=== PATIENT | male | born 1965 | race Caucasian/White ===

== ENCOUNTER → 2020-09-01 | Outpatient (CLI) | payer OTHER ==
[~2020-09-01] MED LIST: NAPR220 PO; OMEPRAZOLE MAGN20 MG PO
== END ==
LOC: LAB 07:00 → LAB SHORT 07:00 → LAB FUT 08-25 14:10
PROVIDERS: Internal Medicine Nephrology
DX: N18.32 Chronic kidney disease, stage 3b (principal); D63.1 Anemia in chronic kidney disease; N25.81 Secondary hyperparathyroidism of renal origin; E55.9 Vitamin D deficiency, unspecified; E78.00 Pure hypercholesterolemia, unspecified; R76.9 Abnormal immunological finding in serum, unspecified; R94.5 Abnormal results of liver function studies; R94.6 Abnormal results of thyroid function studies; G60.9 Hereditary and idiopathic neuropathy, unspecified
CPT/HCPCS: 81050; 82530

== ENCOUNTER 2020-12-15 08:51 | Emergency (ER) | payer OTHER ==
[~2020-12-15] VITALS: Ht 182.9 cm; Wt 81.7 kg
[2020-12-15] MEDS ORDERED: Norco 5-325 Ta1 EACH PO (10:22)
== END 2020-12-15 11:46 | disposition home or self-care (01) ==
LOC: ER 08:51
DX: S82.61XA Displaced fracture of lateral malleolus of right fibula, initial encounter for closed fracture (principal); I10 Essential (primary) hypertension; F17.200 Nicotine dependence, unspecified, uncomplicated; Z79.899 Other long term (current) drug therapy; W01.0XXA Fall on same level from slipping, tripping and stumbling without subsequent striking against object, initial encounter
CPT/HCPCS: 29515; 73610; 99283-25; A9270

== ENCOUNTER 2022-10-06 09:53 | Emergency (ER) | payer OTHER ==
[~2022-10-06] VITALS: Ht 182.9 cm; Wt 95.2 kg
[~2022-10-06 09:53] MED LIST changes: +Norco 5-325 Ta1 EACH PO
[2022-10-06 10:17] LABS: Hematocrit 41.5 % (37.0-53.0); Hemoglobin 14.4 g/dL (13.5-17.5); Mean Corpuscular HGB 31.5 pg (26.0-34.0); Mean Corpuscular HGB Conc 34.7 g/dL (31.5-36.5); Mean Corpuscular Volume 91 fL (80-100); Mean Platelet Volume 8.6 fL (9.1-12.4); Platelet Count 244 K/mm3 (150-400); RDW Coefficient Variation 13.9 % (11.7-14.2); RDW Standard Deviation 46.4 fL (35.1-46.3); Red Blood Cell Count 4.57 M/mm3 (4.30-5.90); White Blood Cell Count 8.26 K/mm3 (4.00-11.30)
[2022-10-06 10:40] LABS: Albumin/Globulin Ratio 0.9 (0.8-1.8); Bilirubin, Total 0.5 mg/dL (0.1-1.0); Bun/Creatinine Ratio 7.9 (12.0-20.0); Calcium, Blood 9.1 mg/dL (8.5-10.1); Creatinine, Blood 0.76 mg/dL (0.60-1.20); Globulin, Blood 4.3 g/dL (2.2-4.0); Potassium, Blood 3.6 mmol/L (3.5-5.5); Total Protein, Blood 8.3 g/dL (6.4-8.2)
[2022-10-06 11:25] LABS: BASOPHILS ABSOLUTE MAN 0.16 K/mm3 (0.00-0.23); BASOPHILS PERCENT MAN 2 % (0-2); EOSINOPHILS ABSOLUTE MAN 0.24 K/mm3 (0.00-0.68); EOSINOPHILS PERCENT MAN 3 % (0-6); LYMPHOCYTES ABSOLUTE MAN 2.23 K/mm3 (0.84-5.20); LYMPHOCYTES PERCENT MAN 27 % (21-46); MONOCYTES ABSOLUTE MAN 0.57 K/mm3 (0.16-1.47); MONOCYTES PERCENT MAN 7 % (4-13); NEUTROPHILS ABSOLUTE MAN 5.03 K/mm3 (1.96-9.15); SEG NEUTROPHILS PERCENT MAN 61 % (41-73); TOTAL CELLS COUNTED 100
== END 2022-10-06 13:07 | disposition home or self-care (01) ==
LOC: ER 09:53
PROVIDERS: Physician Assistant
DX: I10 Essential (primary) hypertension (principal); R07.9 Chest pain, unspecified; Z53.21 Procedure and treatment not carried out due to patient leaving prior to being seen by health care provider
CPT/HCPCS: 36415; 71046; 80053; 84484; 85025; 93005; 93010

== ENCOUNTER → 2023-02-22 | Outpatient (CLI) | payer OTHER ==
[2023-02-22 12:09] LABS: BASOPHILS ABSOLUTE AUTO 0.06 K/mm3 (0.00-0.23); BASOPHILS PERCENT AUTO 1 % (0-2); EOSINOPHILS ABSOLUTE AUTO 0.16 K/mm3 (0.00-0.68); EOSINOPHILS PERCENT AUTO 3 % (0-6); Hematocrit 41.1 % (37.0-53.0); Hemoglobin 14.3 g/dL (13.5-17.5); IMMATURE GRAN ABSOLUTE AUTO 0.05 K/mm3 (0.00-0.10); IMMATURE GRAN PERCENT AUTO 1 % (0-1); LYMPHOCYTES ABSOLUTE AUTO 1.67 K/mm3 (0.84-5.20); LYMPHOCYTES PERCENT AUTO 29 % (21-46); MONOCYTES ABSOLUTE AUTO 0.61 K/mm3 (0.16-1.47); MONOCYTES PERCENT AUTO 11 % (4-13); Mean Corpuscular HGB 32.9 pg (26.0-34.0); Mean Corpuscular HGB Conc 34.8 g/dL (31.5-36.5); Mean Corpuscular Volume 95 fL (80-100); Mean Platelet Volume 9.3 fL (9.1-12.4); NEUTROPHILS ABSOLUTE AUTO 3.19 K/mm3 (1.96-9.15); NEUTROPHILS PERCENT AUTO 56 % (41-73); Platelet Count 177 K/mm3 (150-400); RDW Coefficient Variation 13.9 % (11.7-14.2); RDW Standard Deviation 48.1 fL (35.1-46.3); Red Blood Cell Count 4.34 M/mm3 (4.30-5.90); White Blood Cell Count 5.74 K/mm3 (4.00-11.30)
[2023-02-22 12:51] LABS: Alanine Aminotransfer (ALT/SGP 91 U/L (12-78); Albumin, Blood 3.6 g/dL (3.4-5.0); Albumin/Globulin Ratio 0.9 (0.8-1.8); Alk Phos 109 U/L (50-136); Anion Gap 6 mmol/L (6-16); Aspartate Aminotrans (AST/SGOT 86 U/L (12-37); Bilirubin, Total 0.7 mg/dL (0.1-1.0); Blood Urea Nitrogen 4 mg/dL (8-24); Bun/Creatinine Ratio 6.3 (12.0-20.0); CHOL/HDL RATIO 2.1; CO2, Blood 27 mmol/L (21-32); Calcium, Blood 8.3 mg/dL (8.5-10.1); Chloride, Blood 108 mmol/L (98-108); Cholesterol 121 mg/dL (50-200); Creatinine, Blood 0.63 mg/dL (0.60-1.20); Glomerular Filtration Rate 112 (60-); Glucose, Blood 120 mg/dL (70-99); HDL Cholesterol 58 mg/dL (>39); LDL/HDL RATIO 0.8; Low Density Lipoprotein Chol 47 mg/dL (0-110); Potassium, Blood 3.3 mmol/L (3.5-5.5); Sodium, Blood 141 mmol/L (136-145); Total Protein, Blood 7.6 g/dL (6.4-8.2); Triglycerides 81 mg/dL (30-160); Very Low Density Lipoprot Chol 16 mg/dL (6-32)
== END | disposition home or self-care (01) ==
LOC: LAB SHORT 08:41
PROVIDERS: Family Medicine
DX: B18.2 Chronic viral hepatitis C (principal); I10 Essential (primary) hypertension
CPT/HCPCS: 80053; 80061; 85025

== ENCOUNTER 2023-12-06 10:55 | Emergency (ER) | payer OTHER ==
[~2023-12-06] VITALS: Ht 182.9 cm; Wt 87.5 kg
[~2023-12-06 10:55] MED LIST changes: +CATAPRES0.2 M1 PO; +METF500 PO; +OMEP20ER PO; +Ventolin/Prove6.7 GM INH; +ZESTRIL40 MG PO
[2023-12-06] MEDS ORDERED: Metoprolol Tartrate 1 MG/ML 5 ML VIAL IV ONE (11:20)
[2023-12-06] MEDS ORDERED: FentaNYL Citrate 50 MCG/ML 2 ML Injection IV ONE (11:20)
[2023-12-06] MEDS ORDERED: NS 1,000 ML IV SCH ×2 (11:20→14:10)
[2023-12-06] MEDS ORDERED: Ondansetron HCl 2 MG / ML 2ML Vial IV ONE (11:20)
[2023-12-06 11:24] LABS: BASOPHILS ABSOLUTE AUTO 0.08 K/mm3 (0.00-0.23); BASOPHILS PERCENT AUTO 1 % (0-2); EOSINOPHILS ABSOLUTE AUTO 0.01 K/mm3 (0.00-0.68); EOSINOPHILS PERCENT AUTO 0 % (0-6); Hematocrit 48.9 % (37.0-53.0); Hemoglobin 16.4 g/dL (13.5-17.5); IMMATURE GRAN ABSOLUTE AUTO 0.15 K/mm3 (0.00-0.10); IMMATURE GRAN PERCENT AUTO 1 % (0-1); LYMPHOCYTES ABSOLUTE AUTO 0.61 K/mm3 (0.84-5.20); LYMPHOCYTES PERCENT AUTO 4 % (21-46); MONOCYTES PERCENT AUTO 5 % (4-13); Mean Corpuscular HGB 32.6 pg (26.0-34.0); Mean Corpuscular HGB Conc 33.5 g/dL (31.5-36.5); Mean Corpuscular Volume 97 fL (80-100); NEUTROPHILS ABSOLUTE AUTO 14.87 K/mm3 (1.96-9.15); NEUTROPHILS PERCENT AUTO 89 % (41-73); Platelet Count 386 K/mm3 (150-400); RDW Coefficient Variation 13.7 % (11.7-14.2); RDW Standard Deviation 48.9 fL (35.1-46.3); Red Blood Cell Count 5.03 M/mm3 (4.30-5.90); White Blood Cell Count 16.62 K/mm3 (4.00-11.30)
[2023-12-06 11:36] LABS: Albumin, Blood 4.7 g/dL (3.4-5.0); Albumin/Globulin Ratio 0.9 (0.8-1.8); Bilirubin, Total 1.7 mg/dL (0.1-1.0); Bun/Creatinine Ratio 16.5 (12.0-20.0); Calcium, Blood 9.8 mg/dL (8.5-10.1); Creatinine, Blood 0.79 mg/dL (0.60-1.20); Potassium, Blood 4.2 mmol/L (3.5-5.5); Total Protein, Blood 9.7 g/dL (6.4-8.2)
[2023-12-06] MEDS ORDERED: CloNIDine 0.1 MG Tab SL ONE (12:25)
[2023-12-06] MEDS ORDERED: LORazepam 2 MG/ML 1ML Injection IV ONE (14:10)
[2023-12-06] MEDS ORDERED: Pantoprazole Sodium 40 MG Injection IV ONE (14:10)
[2023-12-06] MEDS ORDERED: Lidocaine 2% Viscous Soln 15 ML UDC PO ONE (14:15)
[2023-12-06] MEDS ORDERED: Mag Hydrox/AL Hydrox/Simeth 30 ML UDC PO ONE (14:15)
[2023-12-06] MEDS ORDERED: Labetalol HCL 5 MG/ML 20MLVIAL IV ONE (14:55)
[2023-12-06] MEDS ORDERED: Labetalol HCL 5 MG/ML 4ML Injection (Single Dose) IV ONE (15:05)
[2023-12-06 15:29] LABS: Source, Urine Clean Catch
[2023-12-06 15:32] LABS: Appearance, Urine Clear (Clear); Bilirubin, Urine Neg (Neg); Blood, Urine 2+ (Neg); Glucose Qualitative, Urine Neg (Neg); Ketones, Urine 4+ (Neg); Leukocyte Esterase, Urine Neg (Neg); Nitrite, Urine Neg (Neg); Protein, Urine 2+ (Neg); Specific Gravity, Urine 1.015 (1.003-1.022); Urobilinogen, Urine NORM (Normal)
[2023-12-06 15:45] VITALS: BP 189/114
[2023-12-06 15:55] LABS: Color, Urine Pale Yellow (P-Yellow)
[2023-12-06 15:56] LABS: Bacteria Rare /hpf; Hyaline Casts 0-2 /lpf (0-2); Squamous Epithelial Cells Rare /hpf (Few); White Blood Cells, Urine 0-2 /hpf (0-5)
[2023-12-06] MEDS ORDERED: BUDESONIDE-FO10.2 G2 (16:00)
[2023-12-06] MEDS ORDERED: lisinopril 40 mg tab PO (16:04)
[2023-12-06] MEDS ORDERED: cholecalciferol (vit (16:04)
== END 2023-12-06 16:09 | disposition home or self-care (01) ==
LOC: ER 10:55
PROVIDERS: Emergency Medicine
DX: R07.9 Chest pain, unspecified (principal); I10 Essential (primary) hypertension; K29.70 Gastritis, unspecified, without bleeding; F10.90 Alcohol use, unspecified, uncomplicated; F17.200 Nicotine dependence, unspecified, uncomplicated
CPT/HCPCS: 36415; 71045; 74177; 80053; 81001; 83605; 83690; 83735; 84484; 85025; 87040; 93005; 93010; 96361; 96374-59; 96375; 99285-25; A9270; C9113; J2060; J2405; J3010; J7030; Q9967

== ENCOUNTER → 2024-02-28 | Outpatient (CLI) | payer OTHER ==
[~2024-02-28] MED LIST changes: +BUDESONIDE-FO10.2 G2; +cholecalciferol (vit; +lisinopril 40 mg tab PO
[2024-02-28 19:27] LABS: BASOPHILS ABSOLUTE AUTO 0.14 K/mm3 (0.00-0.23); BASOPHILS PERCENT AUTO 1 % (0-2); EOSINOPHILS ABSOLUTE AUTO 0.54 K/mm3 (0.00-0.68); EOSINOPHILS PERCENT AUTO 5 % (0-6); Hematocrit 38.2 % (37.0-53.0); IMMATURE GRAN ABSOLUTE AUTO 0.11 K/mm3 (0.00-0.10); IMMATURE GRAN PERCENT AUTO 1 % (0-1); LYMPHOCYTES ABSOLUTE AUTO 2.87 K/mm3 (0.84-5.20); LYMPHOCYTES PERCENT AUTO 27 % (21-46); MONOCYTES ABSOLUTE AUTO 0.89 K/mm3 (0.16-1.47); MONOCYTES PERCENT AUTO 8 % (4-13); Mean Corpuscular HGB 32.7 pg (26.0-34.0); Mean Corpuscular Volume 96 fL (80-100); Mean Platelet Volume 9.4 fL (9.1-12.4); NEUTROPHILS ABSOLUTE AUTO 6.27 K/mm3 (1.96-9.15); NEUTROPHILS PERCENT AUTO 58 % (41-73); Platelet Count 419 K/mm3 (150-400); RDW Coefficient Variation 12.6 % (11.7-14.2); RDW Standard Deviation 44.1 fL (35.1-46.3); Red Blood Cell Count 3.97 M/mm3 (4.30-5.90); White Blood Cell Count 10.82 K/mm3 (4.00-11.30)
[2024-02-28 19:49] LABS: Albumin, Blood 3.4 g/dL (3.4-5.0); Bilirubin, Total 0.2 mg/dL (0.1-1.0); Bun/Creatinine Ratio 13.8 (12.0-20.0); Creatinine, Blood 0.87 mg/dL (0.60-1.20); Globulin, Blood 3.4 g/dL (2.2-4.0); Percent Saturation 26.2 % (20.0-50.0); Total Protein, Blood 6.8 g/dL (6.4-8.2)
== END | disposition home or self-care (01) ==
LOC: LAB SHORT 18:32 → LAB 18:32
PROVIDERS: Family Medicine
DX: R19.5 Other fecal abnormalities (principal)
CPT/HCPCS: 80053; 82728; 83540; 83550; 85025

== ENCOUNTER → 2024-11-28 | Outpatient (CLI) | payer MEDICARE, OTHER ==
[~2024-11-28] MED LIST changes: +POTA10T PO; +Robaxin750 MG PO
[2024-11-28 16:26] LABS: BASOPHILS ABSOLUTE AUTO 0.11 K/mm3 (0.00-0.23); BASOPHILS PERCENT AUTO 1 % (0-2); EOSINOPHILS ABSOLUTE AUTO 0.01 K/mm3 (0.00-0.68); EOSINOPHILS PERCENT AUTO 0 % (0-6); Hemoglobin 15.6 g/dL (13.5-17.5); IMMATURE GRAN PERCENT AUTO 1 % (0-1); LYMPHOCYTES ABSOLUTE AUTO 2.76 K/mm3 (0.84-5.20); LYMPHOCYTES PERCENT AUTO 35 % (21-46); MONOCYTES ABSOLUTE AUTO 0.52 K/mm3 (0.16-1.47); MONOCYTES PERCENT AUTO 7 % (4-13); Mean Corpuscular HGB 32.2 pg (26.0-34.0); Mean Corpuscular HGB Conc 34.7 g/dL (31.5-36.5); Mean Corpuscular Volume 93 fL (80-100); Mean Platelet Volume 9.5 fL (9.1-12.4); NEUTROPHILS ABSOLUTE AUTO 4.48 K/mm3 (1.96-9.15); NEUTROPHILS PERCENT AUTO 56 % (41-73); Platelet Count 265 K/mm3 (150-400); RDW Coefficient Variation 13.4 % (11.7-14.2); RDW Standard Deviation 45.6 fL (35.1-46.3); Red Blood Cell Count 4.84 M/mm3 (4.30-5.90); White Blood Cell Count 7.98 K/mm3 (4.00-11.30)
[2024-11-28 17:58] LABS: Alanine Aminotransfer (ALT/SGP 49 U/L (12-78); Alk Phos 102 U/L (50-136); Anion Gap 11 mmol/L (3-11); Aspartate Aminotrans (AST/SGOT 42 U/L (12-37); Bilirubin, Total 0.8 mg/dL (0.1-1.0); Blood Urea Nitrogen 10 mg/dL (8-24); CO2, Blood 27 mmol/L (21-32); Calcium, Blood 9.3 mg/dL (8.5-10.1); Chloride, Blood 102 mmol/L (98-108); Cholesterol 198 mg/dL (50-200); Globulin, Blood 3.9 g/dL (2.2-4.0); Glucose, Blood 99 mg/dL (70-99); HDL Cholesterol 49 mg/dL (>39); LDL/HDL RATIO 2.7; Low Density Lipoprotein Chol 133 mg/dL (0-110); Sodium, Blood 136 mmol/L (136-145); Total Protein, Blood 7.9 g/dL (6.4-8.2); Triglycerides 78 mg/dL (30-160); Very Low Density Lipoprot Chol 15 mg/dL (6-32)
[2024-11-28 18:21] LABS: Bun/Creatinine Ratio 13.4 (12.0-20.0); Creatinine, Blood 0.75 mg/dL (0.60-1.20); Glomerular Filtration Rate 105 (60-)
[2024-12-01 07:33] LABS: HCV QNT BY NAAT (IU/ML) Not Detected; HCV QNT BY NAAT (LOG IU/ML) Not Detected; HCV QNT BY NAAT INTERP Not Detected (Not Detected)
== END | disposition home or self-care (01) ==
LOC: LAB 15:14 → LAB SHORT 15:14
PROVIDERS: Family Medicine
DX: Z09 Encounter for follow-up examination after completed treatment for conditions other than malignant neoplasm (principal); Z86.19 Personal history of other infectious and parasitic diseases; Z79.899 Other long term (current) drug therapy
CPT/HCPCS: 80053; 80061; 82306; 83036; 84443; 85025; 87522

== ENCOUNTER 2025-03-01 14:12 | Observation (INO) | payer MEDICARE, OTHER ==
[~2025-03-01] VITALS: Ht 182.9 cm; Wt 79.4 kg
[2025-03-01] MEDS ORDERED: NS 1,000 ML IV ONE (14:27)
[2025-03-01] MEDS ORDERED: NS 1,000 ML IV SCH ×2 (14:30→15:05)
[2025-03-01] MEDS ORDERED: Ketorolac Tromethamine 30mg Vial IV ONE (14:30)
[2025-03-01 14:36] LABS: BASOPHILS ABSOLUTE AUTO 0.09 K/mm3 (0.00-0.23); BASOPHILS PERCENT AUTO 1 % (0-2); EOSINOPHILS PERCENT AUTO 0 % (0-6); Hematocrit 48.4 % (37.0-53.0); Hemoglobin 16.2 g/dL (13.5-17.5); IMMATURE GRAN ABSOLUTE AUTO 0.19 K/mm3 (0.00-0.10); IMMATURE GRAN PERCENT AUTO 1 % (0-1); LYMPHOCYTES ABSOLUTE AUTO 0.82 K/mm3 (0.84-5.20); LYMPHOCYTES PERCENT AUTO 5 % (21-46); MONOCYTES ABSOLUTE AUTO 0.75 K/mm3 (0.16-1.47); MONOCYTES PERCENT AUTO 5 % (4-13); Mean Corpuscular HGB 32.1 pg (26.0-34.0); Mean Corpuscular HGB Conc 33.5 g/dL (31.5-36.5); Mean Corpuscular Volume 96 fL (80-100); Mean Platelet Volume 8.5 fL (9.1-12.4); NEUTROPHILS ABSOLUTE AUTO 14.69 K/mm3 (1.96-9.15); NEUTROPHILS PERCENT AUTO 89 % (41-73); Platelet Count 339 K/mm3 (150-400); RDW Coefficient Variation 13.6 % (11.7-14.2); RDW Standard Deviation 48.2 fL (35.1-46.3); Red Blood Cell Count 5.04 M/mm3 (4.30-5.90); White Blood Cell Count 16.54 K/mm3 (4.00-11.30)
[2025-03-01] MEDS ORDERED: ATOR40TA PO (14:56)
[2025-03-01 15:08] LABS: Albumin, Blood 4.5 g/dL (3.4-5.0); Albumin/Globulin Ratio 1.1 (0.8-1.8); Bilirubin, Total 0.9 mg/dL (0.1-1.0); Bun/Creatinine Ratio 19.3 (12.0-20.0); Creatinine, Blood 0.83 mg/dL (0.60-1.20); Globulin, Blood 4.2 g/dL (2.2-4.0); Potassium, Blood 4.5 mmol/L (3.5-5.5); Thyroid Stimulating Hormone 0.634 uIU/mL (0.360-4.800); Total Protein, Blood 8.7 g/dL (6.4-8.2)
[2025-03-01 16:44] LABS: U Amphetamine Screen Not Detected; U Barbituate Screen Not Detected; U Benzodiazapine Screen Not Detected; U Buprenorphine Screen Not Detected; U Cannabinoids Screen DETECTED; U Cocaine Screen Not Detected; U Methadone Screen Not Detected; U Methamphetamine Screen Not Detected; U Opiates Screen Not Detected; U Oxycodone Screen Not Detected; U Phencyclidine Screen Not Detected
[2025-03-01] MEDS ORDERED: Labetalol HCL 5 MG/ML 4ML Injection (Single Dose) IV ONE (18:05)
[2025-03-01 18:52] LABS: CORONAVIRUS COVID-19 AG Negative (NEGATIVE); INFLUENZA A AG Negative (NEGATIVE); INFLUENZA B AG Negative (NEGATIVE)
[2025-03-01] MEDS ORDERED: Morphine Sulfate 4 MG/1 ML Injection IV ONE (19:50)
[2025-03-01] MEDS ORDERED: CloNIDine 0.1 MG Tab PO ONE (19:50)
[2025-03-01] MEDS ORDERED: Diazepam 5 MG / ML 2ML SYR IV ONE ×2 (21:05→21:50)
[2025-03-01] MEDS ORDERED: Ondansetron HCl 2 MG / ML 2ML Vial IV ONE (21:05)
[2025-03-01] MEDS ORDERED: HydrALAZINE HCl 20 MG / ML 1ML Vial IV PRN (23:30)
[2025-03-01] MEDS ORDERED: ChlordiazePOXIDE 25 MG Cap PO PRN ×2 (23:35)
[2025-03-01] MEDS ORDERED: Diazepam 5 MG / ML 2ML SYR IV PRN ×2 (23:35)
[2025-03-01] MEDS ORDERED: Thiamine HCl 100 MG in NS 50 ML IV SCH (23:57)
[2025-03-01] MEDS ORDERED: Folic Acid 1 MG in NS 50 ML IV SCH (23:58)
[2025-03-02] VITALS (34 sets, daily range): BP systolic 103–175; BP diastolic 64–108
[2025-03-02] MEDS ORDERED: Omeprazole 20 MG CapCR PO ONE (02:15)
[2025-03-02] MEDS ORDERED: NiCARdipine HCL 50 MG in NS 250 ML IV SCH (02:55)
[2025-03-02 03:50] LABS: BASOPHILS ABSOLUTE AUTO 0.07 K/mm3 (0.00-0.23); BASOPHILS PERCENT AUTO 1 % (0-2); EOSINOPHILS ABSOLUTE AUTO 0.01 K/mm3 (0.00-0.68); EOSINOPHILS PERCENT AUTO 0 % (0-6); Hematocrit 41.2 % (37.0-53.0); Hemoglobin 14.2 g/dL (13.5-17.5); IMMATURE GRAN ABSOLUTE AUTO 0.07 K/mm3 (0.00-0.10); IMMATURE GRAN PERCENT AUTO 1 % (0-1); LYMPHOCYTES ABSOLUTE AUTO 2.27 K/mm3 (0.84-5.20); LYMPHOCYTES PERCENT AUTO 22 % (21-46); MONOCYTES ABSOLUTE AUTO 1.06 K/mm3 (0.16-1.47); MONOCYTES PERCENT AUTO 10 % (4-13); Mean Corpuscular HGB 32.2 pg (26.0-34.0); Mean Corpuscular HGB Conc 34.5 g/dL (31.5-36.5); Mean Corpuscular Volume 93 fL (80-100); Mean Platelet Volume 8.6 fL (9.1-12.4); NEUTROPHILS ABSOLUTE AUTO 6.97 K/mm3 (1.96-9.15); NEUTROPHILS PERCENT AUTO 67 % (41-73); Platelet Count 252 K/mm3 (150-400); RDW Coefficient Variation 13.5 % (11.7-14.2); RDW Standard Deviation 46.2 fL (35.1-46.3); Red Blood Cell Count 4.41 M/mm3 (4.30-5.90); White Blood Cell Count 10.45 K/mm3 (4.00-11.30)
[2025-03-02 04:10] LABS: Albumin, Blood 3.8 g/dL (3.4-5.0); Albumin/Globulin Ratio 1.1 (0.8-1.8); Bilirubin, Total 1.2 mg/dL (0.1-1.0); Calcium, Blood 8.9 mg/dL (8.5-10.1); Creatinine, Blood 0.83 mg/dL (0.60-1.20); Globulin, Blood 3.5 g/dL (2.2-4.0); Magnesium, Blood 1.5 mg/dL (1.6-2.4); Total Protein, Blood 7.3 g/dL (6.4-8.2)
--- NOTE | 2025-03-02 04:29 | NUR ---
WEIGHT LOSS PT STATED THAT HE HAS BEEN UNINTENTIONALLY LOSING WEIGHT DUE TO NAUSEA AND VOMITING. ASKED IF VOMIT WAS EVER BLOODY, SAID THAT THEY WERE "DARK AND LIKE COFFEE GROUNDS". SAYS THAT HE HAS SEEN A DOCTOR FOR IT AND NOTHING HAS BEEN FOUND. ASKED IF ANYONE EVER TOLD HIM HE HAD ESOPHAGEAL VARICES OR MENTIONED THE WORD VARICOSE TO HIM (EXPLAINING WHAT THEY WERE), AND HE SAID NO. HE TAKES PRILOSEC DAILY A HOME MED. HAD AN EMESIS EPISODE WHILE IN IMAGING BUT HAS BEEN ABLE TO KEEP DOWN WATER AND 2 JELLO'S SINCE ARRIVING ON THE UNIT. NO C/O NAUSEA. GOOD APPETITE.
[2025-03-02] MEDS ORDERED: Magnesium Sulf 2 GM/Water 50ML 50 ML IV ONE (04:40)
[2025-03-02] MEDS ORDERED: LORazepam 2 MG/ML 1ML Injection IV PRN (07:50)
[2025-03-02] MEDS ORDERED: Omeprazole 20 MG CapCR PO SCH ×2 (08:00→09:00)
--- NOTE | 2025-03-02 08:00 | NUR ---
Terry of care: Alert, oriented, pleasant. CIWA 0. In ST 110-125. Blood pressures controlled on nicardipine gtt. On room air. Eating & voiding. PIV x2 in place. Will continue to monitor.
[2025-03-02] MEDS ORDERED: Lisinopril 20 MG Tab PO SCH (09:00)
[2025-03-02] MEDS ORDERED: Nicotine 21 MG PATCH TOP SCH (09:00)
[2025-03-02] MEDS ORDERED: CloNIDine HCl 0.2 MG Tab PO SCH (09:00)
[2025-03-02] MEDS ORDERED: Enoxaparin 40 MG/0.4 ML SYR SC SCH (09:00)
[2025-03-02] MEDS ORDERED: METO25ER PO (13:31)
== END 2025-03-02 13:40 | disposition home or self-care (01) ==
LOC: ER 14:12 → ERHOLD 14:13 → ICUE 14:13
PROVIDERS: Emergency Medicine; ADMIT Internal Medicine
DX: I16.1 Hypertensive emergency (principal); R00.0 Tachycardia, unspecified; F10.90 Alcohol use, unspecified, uncomplicated; R11.10 Vomiting, unspecified; R79.89 Other specified abnormal findings of blood chemistry; K21.9 Gastro-esophageal reflux disease without esophagitis; I10 Essential (primary) hypertension; F17.210 Nicotine dependence, cigarettes, uncomplicated; Z79.899 Other long term (current) drug therapy
CPT/HCPCS: 36415; 71045; 71260; 74177; 80053; 83605; 83735; 84443; 84484; 85025; 85379; 87428-QW; 93005; 93010; 96361; 96365; 96368; 96372; 96375; 96376; 99285-25; A9270; G0378; J0360; J1650; J1885; J2270; J2405; J3360; J3411; J3475; J7030; J7050; Q9967

== ENCOUNTER 2025-05-01 11:56 | Emergency (ER) | payer MEDICARE, OTHER ==
[~2025-05-01] VITALS: Ht 182.9 cm; Wt 81.7 kg
[~2025-05-01 11:56] MED LIST changes: +ATOR40TA PO; +METO25ER PO
[2025-05-01 12:03] VITALS: BP 210/122
[2025-05-01 12:26] LABS: BASOPHILS ABSOLUTE AUTO 0.09 K/mm3 (0.00-0.23); BASOPHILS PERCENT AUTO 1 % (0-2); EOSINOPHILS ABSOLUTE AUTO 0.00 K/mm3 (0.00-0.68); EOSINOPHILS PERCENT AUTO 0 % (0-6); Hematocrit 32.7 % (37.0-53.0); Hemoglobin 11.2 g/dL (13.5-17.5); IMMATURE GRAN ABSOLUTE AUTO 0.08 K/mm3 (0.00-0.10); IMMATURE GRAN PERCENT AUTO 1 % (0-1); LYMPHOCYTES ABSOLUTE AUTO 1.84 K/mm3 (0.84-5.20); LYMPHOCYTES PERCENT AUTO 14 % (21-46); MONOCYTES ABSOLUTE AUTO 0.74 K/mm3 (0.16-1.47); MONOCYTES PERCENT AUTO 6 % (4-13); Mean Corpuscular HGB Conc 34.3 g/dL (31.5-36.5); Mean Corpuscular Volume 95 fL (80-100); NEUTROPHILS ABSOLUTE AUTO 10.65 K/mm3 (1.96-9.15); NEUTROPHILS PERCENT AUTO 80 % (41-73); NRBC ABSOLUTE 0.00 K/mm3 (0.00-0.02); NRBC Auto 0.0 /100 WBC (0.0-0.2); Platelet Count 193 K/mm3 (150-400); RDW Coefficient Variation 13.7 % (11.7-14.2); RDW Standard Deviation 46.7 fL (35.1-46.3)
[2025-05-01 13:29] LABS: Alanine Aminotransfer (ALT/SGP 21.0 U/L (12-78); Albumin, Blood 3.4 g/dL (3.4-5.0); Albumin/Globulin Ratio 0.9 (0.8-1.8); Anion Gap 7.0 mmol/L (3-11); Aspartate Aminotrans (AST/SGOT 23.0 U/L (12-37); Bilirubin, Total 0.7 mg/dL (0.1-1.0); Blood Urea Nitrogen 9.0 mg/dL (8-24); CO2, Blood 26.0 mmol/L (21-32); Calcium, Blood 7.7 mg/dL (8.5-10.1); Chloride, Blood 107.0 mmol/L (98-108); Creatinine, Blood 0.88 mg/dL (0.60-1.20); Globulin, Blood 3.7 g/dL (2.2-4.0); Glucose, Blood 80.0 mg/dL (70-99); Potassium, Blood 3.9 mmol/L (3.5-5.5); Sodium, Blood 136.0 mmol/L (136-145); Total Protein, Blood 7.1 g/dL (6.4-8.2)
== END 2025-05-01 13:49 | disposition home or self-care (01) ==
LOC: ER 11:56
PROVIDERS: Emergency Medicine
DX: R07.9 Chest pain, unspecified (principal); I10 Essential (primary) hypertension; E78.00 Pure hypercholesterolemia, unspecified; K21.9 Gastro-esophageal reflux disease without esophagitis; F17.200 Nicotine dependence, unspecified, uncomplicated; Z79.899 Other long term (current) drug therapy
CPT/HCPCS: 71045; 80053; 84484; 85025; 93005; 93010; 99285-25

== ENCOUNTER 2025-06-08 02:52 | Inpatient (IN) | payer MEDICARE, OTHER ==
[~2025-06-08] VITALS: Ht 182.9 cm; Wt 89.3 kg
[2025-06-08] VITALS (17 sets, daily range): BP systolic 136–180; BP diastolic 76–113
[2025-06-08 03:27] LABS: BASOPHILS ABSOLUTE AUTO 0.09 K/mm3 (0.00-0.23); BASOPHILS PERCENT AUTO 1 % (0-2); EOSINOPHILS ABSOLUTE AUTO 0.00 K/mm3 (0.00-0.68); EOSINOPHILS PERCENT AUTO 0 % (0-6); Hematocrit 29.4 % (37.0-53.0); Hemoglobin 10.0 g/dL (13.5-17.5); IMMATURE GRAN ABSOLUTE AUTO 0.09 K/mm3 (0.00-0.10); IMMATURE GRAN PERCENT AUTO 1 % (0-1); LYMPHOCYTES ABSOLUTE AUTO 1.91 K/mm3 (0.84-5.20); LYMPHOCYTES PERCENT AUTO 12 % (21-46); MONOCYTES ABSOLUTE AUTO 1.02 K/mm3 (0.16-1.47); MONOCYTES PERCENT AUTO 6 % (4-13); Mean Corpuscular HGB Conc 34.0 g/dL (31.5-36.5); Mean Corpuscular Volume 94 fL (80-100); NEUTROPHILS ABSOLUTE AUTO 13.34 K/mm3 (1.96-9.15); NEUTROPHILS PERCENT AUTO 81 % (41-73); NRBC ABSOLUTE 0.00 K/mm3 (0.00-0.02); NRBC Auto 0.0 /100 WBC (0.0-0.2); Platelet Count 247 K/mm3 (150-400); RDW Coefficient Variation 13.3 % (11.7-14.2); RDW Standard Deviation 45.6 fL (35.1-46.3)
[2025-06-08 03:50] LABS: Alanine Aminotransfer (ALT/SGP 15.0 U/L (12-78); Albumin, Blood 2.6 g/dL (3.4-5.0); Albumin/Globulin Ratio 0.7 (0.8-1.8); Anion Gap 11.0 mmol/L (3-11); Aspartate Aminotrans (AST/SGOT 16.0 U/L (12-37); Bilirubin, Total 1.2 mg/dL (0.1-1.0); Blood Urea Nitrogen 7.0 mg/dL (8-24); CO2, Blood 22.0 mmol/L (21-32); Calcium, Blood 6.3 mg/dL (8.5-10.1); Chloride, Blood 102.0 mmol/L (98-108); Creatinine, Blood 0.65 mg/dL (0.60-1.20); Globulin, Blood 3.7 g/dL (2.2-4.0); Glucose, Blood 120.0 mg/dL (70-99); Potassium, Blood 2.9 mmol/L (3.5-5.5); Sodium, Blood 132.0 mmol/L (136-145); Total Protein, Blood 6.3 g/dL (6.4-8.2)
[2025-06-08] MEDS ORDERED: CefTRIAXone Sodium 1,000 MG in NS 50 ML IV ONE (04:00)
[2025-06-08] MEDS ORDERED: PNEUMOC 20-VAL CONJ-DIP CRM/PF 0.5 ML SYRINGE IM ONE (04:45)
[2025-06-08] MEDS ORDERED: Albuterol 2.5 MG/3 ML VIAL INH SCH (04:50)
[2025-06-08] MEDS ORDERED: Ipratropium/Albuterol SulF 2.5-0.5MG/3 ML Amp INH SCH ×2 (04:50→13:20)
[2025-06-08 04:52] LABS: Magnesium, Blood 0.6 mg/dL (1.6-2.4); Phosphorus, Blood 2.9 mg/dL (2.5-4.9)
[2025-06-08] MEDS ORDERED: Magnesium Sulf 2 GM/Water 50ML 50 ML IV ONE ×2 (04:55→05:45)
[2025-06-08] MEDS ORDERED: NS 1,000 ML IV SCH (05:00)
[2025-06-08 05:05] LABS: C-REACTIVE PROTEIN, EXT RANGE 11.9 mg/dL (0.000-0.300)
[2025-06-08 05:51] LABS: Ferritin, Serum 252.0 ng/mL (26-388); Total Iron Binding Capacity 308.0 ug/dL (250-450)
[2025-06-08] MEDS ORDERED: Sod Ferric Gluc Complx/Sucrose 125 MG in NS 100 ML IV SCH (06:52)
[2025-06-08 07:33] LABS: pH Blood Venous 7.44 (7.34-7.37)
[2025-06-08 08:02] LABS: CORONAVIRUS COVID-19 AG Negative (NEGATIVE)
[2025-06-08] MEDS ORDERED: Enoxaparin 40 MG/0.4 ML SYR SC SCH (09:00)
--- NOTE | 2025-06-08 11:15 | NUR ---
PT TO ICU ROOM O2, ESCORTED BY ED RN. PT ALERT, COOPERATIVE c CARE, FOLLOWING COMMANDS. PT ABLE TO AMBULATE TO ICU BED. ON RA, SOB c EXERTION NOTED DURING AMBULATION TO BED, ON RA. KCL INFUSING. SEE ADMIT ASSESSMENT FOR FULL DETAILS.
[2025-06-08] MEDS ORDERED: Crestor40 MG PO (12:39)
[2025-06-08] MEDS ORDERED: Isosorbide Mono30 MG PO (12:39)
[2025-06-08] MEDS ORDERED: NITR.4SL SL (12:40)
[2025-06-08] MEDS ORDERED: METO50ER PO (12:40)
[2025-06-08] MEDS ORDERED: BREYNA 160-4.10.3 GM PO (12:41)
[2025-06-08] MEDS ORDERED: ALBU90OI INH (12:42)
[2025-06-08] MEDS ORDERED: Formoterol/Mometasone MDI 5/200 mcg 13 GM INH SCH (13:20)
[2025-06-08] MEDS ORDERED: Albuterol 2.5 MG/3 ML VIAL INH PRN (13:20)
[2025-06-08] MEDS ORDERED: Albuterol 2.5 MG/3 ML VIAL ONE (13:20)
--- NOTE | 2025-06-08 17:15 | NUR ---
SHIFT SUMMARY PT REMAINED ALERT AND ORIENTED X 4 T/O ENTIRETY OF SHIFT. ABLE TO FOLLOW COMMANDS, MAKE PURPOSEFUL MOVEMENTS, AND MAKE NEEDS KNOWN. AFEBRILE AND DENIES PAIN. MED NO TELE STATUS, HYPERTENSIVE. PO BP MEDS GIVEN SCHEDULED. ON RA c O2 SATURATIONS > 92%. REPORTS DYSPNEA c EXERTION. BREATHING TREATMENTS ADMINISTERED BY RT ORDERED. TOLERATING PO INTAKE WELL. UTILIZES BEDSIDE URINAL, SBA TO COMMODE FOR CORD/LINE GUIDANCE. PIV TO R HAND INFUSING NS AT 100 mL/HR, PIV TO LAC SALINE LOCKED. WILL CONTINUE TO MONITOR AND REPORT TO ONCOMING RN.
[2025-06-08] MEDS ORDERED: HydrALAZINE HCl 20 MG / ML 1ML Vial IV PRN (21:45)
[2025-06-08] MEDS ORDERED: NS 250 ML IV PRN (23:45)
--- NOTE | 2025-06-09 03:06 | NUR ---
SHIFT SUMMARY/TRANSFER NOTE @0584 REPORT RECEIVED FROM LIQUOR ESTABLISHMENT MANAGERBJ PENA. @8050 PT ARRIVED TO THE MEDICAL FLOOR, RM# [id number]. PT ARRIVED IN A W/C AND INDEPENDENTLY TRANSFERRED TO THE HOSPITAL BED. PT BROUGHT ALL HIS BELONINGS WITH HIM. PT IS A/O X4, ABLE TO MAKE HIS NEEDS KNOWN AND COOPERATIVE WITH CARE. BED AT THE LOWEST POSITION, CALL LIGHT W/I REACH. EDUCATED DRY HEAT CABINET ATTENDANT LIGHT AND FALL PRECAUTIONS. PT IS ON RA, O2 SAT'S>96%. INTERMITTENT SOB REPORTED PER PT, RT BY THE BEDSIDE TREATING WITH NEB TX'S. PT DENIES PAIN. NO COMPLAINTS OR CONCERNS OFFERED. BED BATH PER PT AT HS.
[2025-06-09 03:10] VITALS: BP 178/118
[2025-06-09] MEDS ORDERED: CefTRIAXone Sodium 1,000 MG in NS 100 ML IV SCH (06:00)
[2025-06-09 07:28] VITALS: BP 176/110
[2025-06-09] MEDS ORDERED: Iron Dextran 50 MG / ML 2ML Vial IV ONE (09:00)
[2025-06-09] MEDS ORDERED: Iron Dextran 975 MG in NS 250 ML IV ONE (10:00)
[2025-06-09 10:32] VITALS: BP 168/98
[2025-06-09 12:12] VITALS: BP 168/107
[2025-06-09 15:08] VITALS: BP 182/122
--- NOTE | 2025-06-09 19:21 | NUR ---
SHIFT SUMMARY PT IS A/OX4. INDEPENDENT IN THE ROOM. NO ACUTE CHANGES THROUGHOUT THIS SHIFT. PT REMAIN ON RA, SATS >95%, WITH SOB WITH MINIMAL EXERTION. CONTINUING IV ANTIBIOTICS. PT IS PLEASANT AND COOPERATIVE WITH CARE AND CALLS APPROPRIATELY USING THE CALL LIGHT.
[2025-06-09 20:07] VITALS: BP 190/110
[2025-06-10 02:40] VITALS: BP 193/128
--- NOTE | 2025-06-10 04:31 | NUR ---
SHIFT SUMMARY: PT AOX4 IND IN THE ROOM. CALLS APPROPRIATELY AND ABLE TO MAKE NEEDS KNOWN. COMPLAINS OF SOME DIFFICULTY SLEEPING, FEELS THE BREATHING TREATMENTS OR STEROIDS ARE AMPING HIM UP. STILL PLEASANT AND COOPERATIVE IN CARE. COMPLAINTS OF SOB ON EXERTION BUT DENIES CP. BP HIGH THIS EVENING, MEDICATED PER EMR. HAVING GOOD PO INTAKE. NO ACUTE OVERNIGHT EVENTS. PT IN BED RESTING, BED IN LOWEST POSITION, CALL LIGHT IN REACH. CONTINUING CARE.
[2025-06-10 06:29] LABS: Anion Gap 10.0 mmol/L (3-11); Blood Urea Nitrogen 10.0 mg/dL (8-24); CO2, Blood 23.0 mmol/L (21-32); Calcium, Blood 8.2 mg/dL (8.5-10.1); Chloride, Blood 108.0 mmol/L (98-108); Creatinine, Blood 0.64 mg/dL (0.60-1.20); Glucose, Blood 114.0 mg/dL (70-99); Magnesium, Blood 1.7 mg/dL (1.6-2.4); Potassium, Blood 3.7 mmol/L (3.5-5.5); Sodium, Blood 137.0 mmol/L (136-145)
[2025-06-10 07:45] VITALS: BP 181/108
[2025-06-10 08:54] VITALS: BP 159/113
[2025-06-10 13:46] VITALS: BP 165/98
[2025-06-10 15:14] VITALS: BP 146/98
[2025-06-10 19:23] VITALS: BP 170/103
--- NOTE | 2025-06-10 19:50 | NUR ---
SHIFT SUMMARY: NO NEW OR ACUTE CHANGES DURING THIS SHIFT. PLAN FOR CONTINUED MANAGEMENT OF HTN. PLAN OF CARE ONGOING AT THIS TIME, WILL CONTINUE TO MONITOR.
[2025-06-11 05:02] VITALS: BP 181/112
--- NOTE | 2025-06-11 05:48 | NUR ---
SHIFT SUMMARY A&OX4. ABLE TO MAKE NEEDS KNOWN. PT WORKED WITH RT DURING SHIFT PER ORDERS. HE REMAINS INDEPENDENT IN THE ROOM. MORNING VITALS SHOW ELEVATED BP. PT MEDICATED WITH PRN HYDRALAZINE PER EMAR. PT HAS BEEN ABLE TO SLEEP THROUGHOUT SHIFT AND IS CURRENTLY IN BED AT LOWEST POSITION, RAILS X2 AND CALL LIGHT WITHIN REACH.
[2025-06-11 07:42] VITALS: BP 188/113
[2025-06-11] MEDS ORDERED: AMLO10 PO (11:51)
[2025-06-11] MEDS ORDERED: HYDCHL50 PO (11:52)
[2025-06-11] MEDS ORDERED: DULERA 100 MCG/13 GM INH (11:53)
[2025-06-11] MEDS ORDERED: VISBIOME 112.51 EACH PO (11:53)
[2025-06-11] MEDS ORDERED: NICO21TP TOP (11:53)
[2025-06-11] MEDS ORDERED: AMOCLA875 PO (11:54)
== END 2025-06-11 12:13 | disposition home or self-care (01) | DRG 871 ==
LOC: ER 02:52 → MEDS 04:42 → ERHOLD 04:42 → ICUE 11:15 → MEDS 20:46
PROVIDERS: Emergency Medicine; Internal Medicine; Student in an Organized Health Care Education/Training Program; ADMIT Student in an Organized Health Care Education/Training Program
DX: A41.9 Sepsis, unspecified organism (principal); J18.9 Pneumonia, unspecified organism; J96.01 Acute respiratory failure with hypoxia; E87.1 Hypo-osmolality and hyponatremia; J44.1 Chronic obstructive pulmonary disease with (acute) exacerbation; J44.0 Chronic obstructive pulmonary disease with (acute) lower respiratory infection; I10 Essential (primary) hypertension; K21.9 Gastro-esophageal reflux disease without esophagitis; E78.00 Pure hypercholesterolemia, unspecified; F17.210 Nicotine dependence, cigarettes, uncomplicated; D50.9 Iron deficiency anemia, unspecified; R65.20 Severe sepsis without septic shock; E87.6 Hypokalemia; E83.42 Hypomagnesemia; F12.90 Cannabis use, unspecified, uncomplicated; E83.51 Hypocalcemia; Z86.19 Personal history of other infectious and parasitic diseases; Z88.8 Allergy status to other drugs, medicaments and biological substances; Z79.899 Other long term (current) drug therapy
CPT/HCPCS: 36415; 71046; 71260; 80048; 80053; 82330; 82607; 82728; 82746; 82803; 83540; 83550; 83605; 83735; 84100; 84145; 84484; 85025; 85379; 86140; 87040; 87070; 87205; 87428-QW; 93005; 93010; 94640; 94664; 94760; 99285-25; A9270; J0360; J0456; J0696; J1650; J1750; J2916; J2919; J3475; J3480; J7030; J7050; J7512; Q9967